=== PATIENT | female | born 1945 | race Caucasian/White ===

== ENCOUNTER 2016-11-25 08:43 | Emergency (ER) | payer OTHER, MEDICARE ==
[~2016-11-25] VITALS: Ht 177.8 cm; Wt 88.9 kg
[~2016-11-25 08:43] MED LIST: ACETAMINOPHEN500 MG PO; COUMADIN1 MG PO; HYDROCODON-ACE1 EAC7 PO; ILOTYCIN1 GM BOTH EYES; IRON325 M1 PO; MILK OF MAGNESI10 ML PO; NICODERM CQ1 EAC2 TD; ZOLOFT50 MG PO
[2016-11-25 09:35] LABS: EOSINOPHIL (%) 6.1 % (0-5); EOSINOPHIL COUNT 0.3 K/uL (0-0.3); HEMATOCRIT 31.5 % (36.0-46.0); IMMATURE GRANULOCYTE (%) 0.2 % (0.0-0.7); INSTRUMENT ABS NEUTROPHIL CT 1.9 K/uL; MCH 25.4 PG (29.0-34.0); MCHC 31.7 G/DL (30.0-36.0); MCV 80.2 FL (83-99); MEAN PLAT.VOLUME 9.2 uM^3 (9.5-12.4); MONOCYTE (%) 5.7 % (3-12); MONOCYTE COUNT 0.3 K/uL (0-0.8); NEUTROPHIL COUNT 1.9 K/uL (1.8-6.4); PLATELET COUNT 230 K/uL (156-360); RBC DIS.WIDTH-CV 19.1 % (11.8-14.6); RBC DIS.WIDTH-SD 54.7 % (39-53); RED BLOOD COUNT 3.93 M/uL (3.80-5.20); WHITE BLOOD COUNT 4.4 K/uL (4.1-10.2)
[2016-11-25 09:47] LABS: CHLORIDE 108 mEq/L (99-109)
[2016-11-25 09:48] LABS: POTASSIUM 4.2 mEq/L (3.7-5.4); SODIUM 142 mEq/L (136-147)
[2016-11-25 09:49] LABS: GLUCOSE 87 mg/dL (70-99)
[2016-11-25 09:51] LABS: ANION GAP 8 MEQ/L (2-14)
[2016-11-25 09:53] LABS: GFR ESTIMATE (CALCULATED) > 59 mL/min/
[2016-11-25 09:54] LABS: UREA NITROGEN (BUN) 9 mg/dL (9-23)
[2016-11-25] MEDS ORDERED: PERCOCET 5/31 TABLET PO (11:31)
[2016-11-25] MEDS ORDERED: MOTRIN800 MG PO (11:48)
[2016-11-25 12:01] VITALS: BP 122/61
== END 2016-11-25 12:03 | disposition home or self-care (01) ==
LOC: EME 08:43
PROVIDERS: Emergency Medicine
DX: S32.591A Other specified fracture of right pubis, initial encounter for closed fracture (principal); M54.5 Low back pain; R10.84 Generalized abdominal pain; V86.99XA Unspecified occupant of other special all-terrain or other off-road motor vehicle injured in nontraffic accident, initial encounter; Y92.79 Other farm location as the place of occurrence of the external cause; Z96.643 Presence of artificial hip joint, bilateral; F17.200 Nicotine dependence, unspecified, uncomplicated
CPT/HCPCS: 70450; 72132; 74177; 80048; 85025; 99281; 99285; J7030

== ENCOUNTER 2017-01-04 10:11 | Emergency (ER) | payer OTHER, MEDICARE ==
[~2017-01-04] VITALS: Ht 177.8 cm; Wt 82.7 kg
[~2017-01-04 10:11] MED LIST changes: +MOTRIN800 MG PO; +PERCOCET 5/31 TABLET PO
[2017-01-04 15:08] VITALS: BP 113/58
== END 2017-01-04 15:10 | disposition home or self-care (01) ==
LOC: RME 10:11 → EME 10:11 → RME 15:10
DX: S39.012A Strain of muscle, fascia and tendon of lower back, initial encounter (principal); M25.551 Pain in right hip; W01.0XXA Fall on same level from slipping, tripping and stumbling without subsequent striking against object, initial encounter; M85.88 Other specified disorders of bone density and structure, other site; Z96.643 Presence of artificial hip joint, bilateral; F17.200 Nicotine dependence, unspecified, uncomplicated
CPT/HCPCS: 72100; 73502; 99281; 99284

== ENCOUNTER 2017-08-11 09:54 | Day surgery (SDC) | payer OTHER, MEDICARE ==
[~2017-08-11] VITALS: Ht 177.8 cm; Wt 79.4 kg
[~2017-08-11 09:54] MED LIST changes: +PROAIR HFA8.5 GM IH; +TRANSDERM-SCOP1 EACH TD; +XANAX0.25 MG PO
[2017-08-11 10:37] VITALS: BP 119/62
[2017-08-11 19:35] VITALS: BP 99/51
[2017-08-11 20:45] VITALS: BP 118/58
== END 2017-08-11 21:05 | disposition home or self-care (01) ==
LOC: SDC 09:54
DX: T85.49XA Other mechanical complication of breast prosthesis and implant, initial encounter (principal); Y81.2 Prosthetic and other implants, materials and accessory general- and plastic-surgery devices associated with adverse incidents; J44.9 Chronic obstructive pulmonary disease, unspecified; F17.210 Nicotine dependence, cigarettes, uncomplicated
CPT/HCPCS: 88304; J0131; J0690; J1170; J1885; J2250; J2405; J2710; J2765; J3010

== ENCOUNTER 2017-12-05 16:36 | Emergency (ER) | payer OTHER, MEDICARE ==
[~2017-12-05] VITALS: Ht 177.8 cm; Wt 79.0 kg
[2017-12-05 18:18] LABS: BASOPHIL (%) 0.4 % (0-1); EOSINOPHIL (%) 4.5 % (0-5); EOSINOPHIL COUNT 0.2 K/uL (0-0.3); HEMATOCRIT 30.8 % (36.0-46.0); HEMOGLOBIN 10.1 G/DL (11.9-15.5); IMMATURE GRANULOCYTE (%) 0.2 % (0.0-0.7); LYMPHOCYTE (%) 58.6 % (15-42); MCH 26.2 PG (29.0-34.0); MCHC 32.8 G/DL (30.0-36.0); MONOCYTE (%) 6.3 % (3-12); MONOCYTE COUNT 0.3 K/uL (0-0.8); NEUTROPHIL COUNT 1.5 K/uL (1.8-6.4); PLATELET COUNT 275 K/uL (156-360); RBC DIS.WIDTH-CV 18.6 % (11.8-14.6); RBC DIS.WIDTH-SD 53.3 % (39-53); RED BLOOD COUNT 3.85 M/uL (3.80-5.20); WHITE BLOOD COUNT 5.1 K/uL (4.1-10.2)
[2017-12-05 18:28] LABS: CHLORIDE 109 mEq/L (99-109); POTASSIUM 3.7 mEq/L (3.7-5.4); SODIUM 141 mEq/L (136-147)
[2017-12-05 18:29] LABS: PTT 28.8 SEC (25-37)
[2017-12-05 18:30] LABS: GLUCOSE 91 mg/dL (70-99)
[2017-12-05 18:34] LABS: CREATININE 0.8 mg/dL (0.6-1.3); GFR ESTIMATE (CALCULATED) > 59 mL/min/
[2017-12-05 18:35] LABS: UREA NITROGEN (BUN) 12 mg/dL (9-23)
[2017-12-05 18:56] LABS: ERTH.SED.RATE 26 MM/HR (0-30)
[2017-12-05 19:18] LABS: HDL CHOLESTEROL 53 MG/DL (Desirable>=50); LDL CHOLESTEROL 121 mg/dL (Desirable<100); NON-HDL CHOLESTEROL 136 mg/dL (Desirable<160); TOTAL CHOLESTEROL 189 mg/dL (Desirable<200); TRIGLYCERIDES 74 MG/DL (Normal: <150)
[2017-12-05 19:59] LABS: THYROTROPIN (TSH) 2.7 MIU/L (0.4-5.5)
[2017-12-05 20:05] VITALS: BP 108/79
[2017-12-06 09:53] LABS: HEMOGLOBIN A1c (GLYCOHEMOGLOB) 5.2 % (Below 5.7)
== END 2017-12-05 20:23 | disposition home or self-care (01) ==
LOC: EME 16:36
PROVIDERS: Emergency Medicine
DX: R27.0 Ataxia, unspecified (principal); R47.1 Dysarthria and anarthria; R53.1 Weakness; M25.775 Osteophyte, left foot; M79.645 Pain in left finger(s); M79.89 Other specified soft tissue disorders; K21.9 Gastro-esophageal reflux disease without esophagitis; Z88.5 Allergy status to narcotic agent; Z88.6 Allergy status to analgesic agent; Z91.040 Latex allergy status; F17.200 Nicotine dependence, unspecified, uncomplicated
CPT/HCPCS: 70450; 73130; 73630; 80048; 80061; 82948; 83036; 84238 90; 84443; 85025; 85610; 85651; 85730; 86038; 93005; 93880; 99281; 99285